=== PATIENT | female | born 1975 | race Caucasian/White ===

== ENCOUNTER 2024-05-16 12:35 | Outpatient (CLI) | payer BC, SELFPAY | END 2024-05-16 12:36 | disposition home or self-care (01) | LOC: FRMREF 12:40 | PROVIDERS: Visit Provider Physician Assistant Medical | DX: B83.9 Helminthiasis, unspecified (principal) | CPT/HCPCS: 80053 ==

== ENCOUNTER 2025-03-11 22:19 | Emergency (ER) | payer BC, SELFPAY ==
[2025-03-11 22:21] VITALS: BP 158/104; PULSE 80; RESP 18; TEMP 36.2; O2SAT 97; BMI 16.9
--- OUTSIDE RECORDS SUMMARY | 2025-03-11 22:22 | XMS_ITS | Clinical Summary ---
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 Active Digestive Enzymes (Enzyme Digest) capsule Take 2 Tablets by mouth. Active medication order composerIndica tions:Hair loss Creatine Magnesium citrate 1.5 tsp as needed at HS Probiotic glycemic natural resource manager: 2 caps with each meal when remembers 0 1 Active mebendazole 100 mg chewable tabletIndicati ons:Parasite infection,Para sites in stool,Taenia solium infection Take 500 mg (5 tablets) by mouth once daily. Repeat in 3 weeks.Please ignore previous prescription 10 Tablet 5 Active estradiol 0.0375 mg/24 hr SEMIWEEKLY patchIndicatio ns:Perimenopau nicole vasomotor symptoms Apply 1 Patch on dry, clean, hairless skin every Monday and . 24 Patch 3 5 Active progesterone micronized (Prometrium) 200 mg capsuleIndicat ions:Perimenop ausal vasomotor symptoms,Preme nstrual spotting Take 1 Capsule (200 mg) by mouth at bedtime. Start on cycle day 16 and continue for 12 nights. This product contains peanut oil. Please verify patient allergies. 90 Capsule 3 5 Active progesterone micronized (Prometrium) 200 mg capsuleIndicat ions:Premenstr ual spotting,Perim enopausal vasomotor symptoms Take 1 Capsule (200 mg) by mouth at bedtime. Start on cycle day 16 and continue for 12 nights. This product contains peanut oil. Please verify patient allergies. 90 Capsule 3 4 025 Discontin ued(Reord er (E-cancel not sent)) estradiol 0.0375 mg/24 hr SEMIWEEKLY patchIndicatio ns:Perimenopau nicole vasomotor symptoms Apply 1 Patch on dry, clean, hairless skin every Monday and . 8 Patch 11 4 025 Discontin ued(*Medi cation adjustmen t) albendazole (ALBENZA) 200 mg tabletIndicati ons:Parasite infection Take 2 Tablets (400 mg) by mouth two times daily. 4 Tablet 4 025 Discontin ued(*Jessica ent states no longer taking) mebendazole 100 mg chewable tabletIndicati ons:Parasite infection,Para sites in stool 500 mg chew ( 5 tablets) by mouth first day then 100 mg (1 tablet) bid by mouth for 3 days. 11 Tablet 5 025 Discontin ued(*Erro r/entry level account representative error) Active Problems Problem Noted Date Diagnosed Date H/O LEEP 10/16/1995 Overview (05/04/2022): 1995 abnormal pap- per medical history, no records 1995 LEEP- per surgical history, no records 02/2022 NIL/HPV negative. Plan: Pap/HPV due 02/2027. Encounters Date Type Department Care Team Description 03/03/2025 8:50 AM CDT Orders Only [facility] [address] [place] [phone] Lab, Appv Lab 03/03/2025 Travel 02/28/2025 8:15 AM CDT Orders Only [facility] [address] [place] [address] Lab, Farm Lab 02/28/2025 Travel 02/27/2025 2:00 PM CDT Telemedicine [facility] [address] [place] [phone] Joyce Rios DO Telehealth; Follow Up 02/20/2025 Telephone [facility] [address] [place] [phone] Karla Castillo NP Prior Authorization (Emverm 100 mg chewable tablet APPROVED 01/22/25-08/20/25) 02/18/2025 8:30 AM CDT Telemedicine [facility] [address] [place] [phone] Karla Castillo NP Telehealth; Follow Up 02/15/[address] [phone] Joyce Rios, Prior Authorization (progesterone micronized (Prometrium) 200 mg capsule Approved 01/16/25-02/15/26) 12/20/[address] [phone] Joyce Rios DO Questions from Last 3 Months Immunizations Immunization Administration Dates Next Due Influenza A (H1N1), Inactiva ahmet (Age >=3 Years) 09/01/2009 Influenza Virus, Unspecified 08/04/2015, 08/18/2014,07/26/2013,2011 Influenza, IIV3 (Age >=3 years) 07/04/2012 Influenza,LAIV4 Live Intrana nicole (Flumist) 08/04/2015,08/18/2014,07/26/2013 Tdap 06/30/2011 Social History Tobacco Use Types Packs/Day Years Used Date Smoking Tobacco: Never Passive Smoke Exposure: Never Smokeless Tobacco: Never Tobacco Cessation:Counseling Given: No Comments:no exposure Alcohol Use Standard Drinks/Week Comments Not Currently 0 (1 standard drink = 0.6 oz pur e alcohol) PHQ-2 Answer Date Recorded PHQ-2 TOTAL SCORE 0 08/21/2023 Financial Resource Strain Answer Date R ecorded Difficulty of Paying Living Expenses Not on file 10/11/2021 Difficulty of Paying Living Expenses Not on file 10/11/2021 Comments No Sex and Gender Information Value Date Recorded Sex Assigned at Not on file Legal Sex Female 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 Gender Identity Not on file Sexual Orientation Not on file 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 Not on file Not on file Obstetrics History Para Term AB IAB SAB Ectopic Multiple Livin g Live Births 2 2 2 0 0 0 0 0 0 2 0 Date Outcome GA Total Labor Labor/2nd/3rd Weight Sex Type Anes PTL Sloane A1 A5 Name Clin Term Term Last Filed Vital Signs Vital Sign Reading Time Taken Comments Blood Pressure 122/80 09/10/2024 9:01 AM REPAIR 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 Pulse 71 09/10/2024 9:01 AM REPAIR 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 Temperature 37.1 C (98.8 F) 09/10/2024 9:01 AM REPAIR 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 Respiratory Rate 16 09/10/2024 9:01 AM REPAIR 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 Oxygen Saturation 99% 06/08/2021 9:00 AM CDT Inhaled Oxygen Concentration - - Weight 80.4 kg (177 lb 4.8 oz) 09/10/2024 9:01 A M REPAIR 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 Height 170.2 cm (5' 7) 08/21/2024 10:02 AM REPAIR 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 Body Mass Index 27.77 08/21/2024 10:02 AM REPAIR 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 Plan of Treatment Upcoming Encounters Date Type Department Care Team (Late st Contact Info) Description 03/17/2025 2:20 PM CDT Office Visit [facility] [address] [facility] [address] [place], [place] [phone] Mely Mendes MBBS [address] [place], [place] [phone] 05/06/2025 10:30 AM CDT Telemedicine [facility] [address] [place] [address] Karla Castillo NP [address] [place] [address] Health Maintenance Due Date Last Done Comments Depression screening for age 12+ 1988 HIV for age 15-65 01/22/1991 Hepatitis C screening for age 18-79 01/22/1994 Hepatitis B series for 19+ (1 of 3 - 19+ 3-dose series) 01/22/1995 Mammogram for age 45-75 01/22/2021 Tetanus booster 06/30/2021 06/30/2011 Fecal testing non-DNA (FIT,FOBT,iFOBT) for age 45-75 02/22/2023 02/22/2022 COVID-19 vaccine series ( - 2023- season) 2024 Influenza Vaccine (Season Ended) 2025 08/04/2015, 08/04/2015, 08/18/2014, Additional history exists BMI (ht and wt on same day) for age 18+ 08/21/2025 08/21/2024, 08/21/2023, 02/14/2022, Additional history exists Lipids for age 45-75 02/14/2027 02/14/2022 Pap test for age 21-65 02/14/2027 , 02/14/2022, 03/22/2019, Additional history exists Tdap Completed 06/30/2011 Pneumococcal series for age 6-49 Aged Out No longer eligible based on patient's age to complete this topic Procedures Procedure Name Priority Date/Time Associated Diagnosis Comments SALIVARY CORTISOL MS Routine 03/02/2025 8:45 PM CDT Weight gain SALIVARY CORTISOL MS Routine 03/02/2025 4:15 PM CDT Weight gain SALIVARY CORTISOL MS Routine 03/02/2025 11:15 AM CDT Weight gain SALIVARY CORTISOL MS Routine 03/02/2025 6:00 AM CDT Weight gain TESTOSTERONE,TOTAL Routine 02/28/2025 8: 05 AM CDT Weight gain DHEA-SULFATE (DHEA-S) Routine 02/28/2025 8:05 AM CDT Weight gain CORTISOL TOTAL Routine 02/28/2025 8:05 AM CDT Weight gain OCCULT BLOOD IFOBT STOOL Routine 02/22/2022 5:14 PM CDT Screen for colon cancer LIPID PANEL W REFLEX MEASURED LDL Routine 02/14/2022 9:17 AM CDT Lipid screening HPV HIGH RISK Routine 02/14/2022 8:57 AM CDT Screening for malignant neoplasm of cervix from Last 3 Months or Most Recently Relevant to Health Maintenance Results * SALIVARY CORTISOL MS (03/02/2025 8:45 PM CDT) Only the most recent of4 resultswithin the time period is included. CORTISOL, LC/MS, SALIVA 0.03 mcg/dL [facility]Ines [facility], Comment: 8-10 AM: 0.04-0.56 mcg/dL noon-2 PM: < OR = 0.21 mcg/dL 4-6 PM: < OR = 0.15 mcg/dL 10 PM-1 AM: < OR = 0.09 mcg/dL This test was developed and its analytical performance characteristics have been determined by [employer]. It has not been cleared or approved by the FDA. This assay has been validated pursuant to the CLIA regulations and is used for clinical purposes. [facility]iva SALIVA SPECIMEN / Unknown 03/02/2025 8:45 PM CDT 03/03/2025 9:00 AM CDT Karla Castillo ENGRAVING PLATE MAKER SEND OUTS Final Re sult [facility] [address] [place] [address], [facility], [address] [place] [address] * CORTISOL TOTAL (02/28/2025 8:05 AM CDT) CORTISOL, TOTAL 14.0 mcg/dL [facility] Comment: Reference Range: For 8 a.m.(7-9 a.m.) Specimen: 4.0-22.0 Reference Range: For 4 p.m.(3-5 p.m.) Specimen: 3.0-17.0 * Please interpret above results accordingly * Blood BLOOD SPECIMEN / Unknown 02/28/2025 8:05 AM CDT 02/28/2025 8:06 AM CDT Karla Hall [employer] ENGRAVING PLATE MAKER CHEMISTRY Final Re sult Performing Organization Address City/[facility]/ZIP Co de Phone Number [facility] [address] [place] [address], [facility] [address] [place] [address] * TESTOSTERONE,TOTAL (02/28/2025 8:05 AM CDT) [facility] TESTOSTERONE, TOTAL, MS 26 2 - 45 ng/dL [facility] Comment: For additional information, please refer to https://education.[employer]/faq/TotalTestosteroneLCMSMS (This link is being provided for informational/educational purposes only.) (Note) This test was developed and its analytical performance characteristics have been determined by [employer] [facility]. It has not been cleared or approved by the FDA. This assay has been validated pursuant to the CLIA regulations and is used for clinical purposes. [facility] [address] [place] [address],[address] [place] [address] Juvenal Rossi MD, PhD Blood BLOOD SPECIMEN / Unknown 02/28/2025 8:05 AM CDT 02/28/2025 8:06 AM CDT Karla Hall Otremba ENGRAVING PLATE MAKER CHEMISTRY Final Re sult Performing Organization Address City/[facility]/ZIP Co de Phone Number [facility] [address] [place] [phone], [facility] [address] [place] [address], [address] [place] [address] * (ABNORMAL) DHEA-SULFATE (DHEA-S) (02/28/2025 8:05 AM CDT) DHEA SULFATE 246(H) 15 - 205 mcg/dL [facility] Blood BLOOD SPECIMEN / Unknown 02/28/2025 8:05 AM CDT 02/28/2025 8:06 AM CDT Karla Castillo ENGRAVING PLATE MAKER SEND OUTS Final Re sult Performing Organization Address [facility] Co de Phone Number [facility] [address] [place] [address], [place] [phone] [facility] [address] [place] [address] * OCCULT BLOOD IFOBT STOOL (02/22/2022 5:14 PM CDT) STOOL BLOOD ,IFOBT Negative Negative 02/25/2022 11:10 AM CDT [facility] Stool STOOL SPECIMEN / Unknown Non-Blood / Unknown 02/22/2022 5:14 PM CDT 02/24/2022 5:14 PM CDT Joyce Rios DO LABORATORY Final Resu lt Performing Organization Address City/[facility]/ZIP Co de Phone Number [facility] [address] [place] [address], [place] [phone] * LIPID PANEL W REFLEX MEASURED LDL (02/14/2022 9:17 AM CDT) CHOLESTEROL,TOTAL 162 100 - 199 mg/dL 02/14/2022 2:14 PM CDT [facility] TRAL LABORATORY TRIGLYCERIDES 38 <150 mg/dL 02/14/2022 2:14 PM CDT [facility] LABOR[facility] HDL CHOLESTEROL 52 >40 mg/dL 2:14 PM CDT [facility] LABORAT[facility] NON-HDL CHOLESTEROL 110 <145 mg/dl 02/14/2022 2:14 PM CDT [facility] TRA LABORATORY CHOL/HDL RATIO 3.12 <4.50 02/14/2022 2:14 PM CDT [facility] TRAL LABORATORY LDL CHOLESTEROL 102 <=130 mg/dL 02/14/2022 2:14 PM CDT [facility] TRAL LABORATORY VLDL CHOLESTEROL 8 <=30 mg/dL 02/14/2022 2:14 PM CDT [facility] LABORAT[facility] PROVIDER ORDERED STATUS RANDOM 02/14/2022 2:14 PM CDT [facility] TRA [facility] Blood BLOOD SPECIMEN / Unknown Venipuncture / Unknown 02/14/2022 9:17 AM CDT 02/14/2022 9:19 AM CDT us Joyce Rios DO CHEMISTRY Final Resu lt Performing Organization Address City/[facility]/ZIP Co de Phone Number [facility] [address] [place] [address], * HPV HIGH RISK (02/14/2022 8:57 AM CDT) TYPE 16 Negative Negative 02/16/2022 4:41 PM CDT [facility] LAB[facility] TYPE 18 Negative Negative 02/16/2022 4:41 PM CDT [facility] OTHER HIGH RISK TYPES Negative Negative 02/16/2022 4:41 PM CDT [facility] Other (Cervical) Non-Blood / Unknown 02/14/2022 8:57 AM CDT 02/15/2022 8:31 AM CDT Narrative [facility] - 02/16/2022 4:41 PM CDT HPV types 16, 18, 31, 33, 35, 39, 45, 51, 52, 56, 58, 59, 66 and 68 DNA were undetectable or below the pre-set threshold. Methodology: [employer] 4800 HPV Test us Joyce Rios DO MICROBIOLOGY Final Resu lt [facility] LAB[facility]ORY [address] [place] [address], [place] from Last 3 Months or Most Recently Relevant to Health Maintenance Insurance [facility] Advance Directives * Full Code (Latest Code Status on File) Date Activated Date Inactivated Comments 06/08/2021 6:11 AM 06/08/2021 11:34 AM Question Answer Comments Code Status Discussion: Not Discussed Care Teams Varsity Baseball Coach Relationship Specialty Start Date End Date Nicholas Dela Cruz PCP - General 01/09/07
--- OUTSIDE RECORDS SUMMARY | 2025-03-11 22:22 | XMS_ITS | Encounter Summary ---
Author Organization [place] Address [address] [place] [address]. [place] [address] Care Team Providers Care Hand Lacer Name Role Phone [facility] Primary Care Provider David Gutierrez MD Unavailable Encounter Details Date Type Department Care Team (Late st Contact Info) Description 08/25/2022 [facility] [place] [address] [place] [address] David Gutierrez MD [address] [place], [place] [phone] Social History Tobacco Use Types Packs/Day Years Used Date Smoking Tobacco: Never Smokeless Tobacco: Never Alcohol Use Standard Drinks/Week Comments No 0 (1 standard drink = 0.6 oz pur e alcohol) Comments No Sex and Gender Information Value Date Recorded Sex Assigned at Not on file Legal Sex Female 4:49 AM STAFF ANTISUBMARINE OFFICER Gender Identity Not on file Sexual Orientation Not on file 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
--- OUTSIDE RECORDS SUMMARY | 2025-03-11 22:22 | XMS_ITS | Clinical Summary ---
Author Organization [facility] Address [address] [place] [address] Care Team Providers Care Sourcing Intern Name Role Phone Unavailable Primary Care Provider Unavailabl e Source Comments You are receiving this document as you are listed as the primary care provider,follow-up provider, or the patient has been referred to you for consultation.This is in compliance with the Medicare andMedicaid EHR Incentive Program,which states Providers who transition their patient to another setting of careor provider of care or refers their patient to another provider of care shouldprovide summary care record for each transition of care or referral. [facility] Allergies Active Allergy Reactions Criticality Noted Date Comments Oxycodone-Acetaminophen Anaphylaxis,Hives High 12/21 Medications No known medications Encounters Date Type Department Care Team Description 02/25/2025 Telephone Infectious Disease at [address] [address] Unassigned, Provider Appt. Needed from Last 3 Months Social History Tobacco Use Types Packs/Day Years Used Date Smoking Tobacco: Never Assessed Comments Unknown Sex and Gender Information Value Date Recorded Sex Assigned at Not on file Legal Sex Female 7:12 AM PEST LOCATOR Gender Identity Not on file Sexual Orientation Not on file Last Filed Vital Signs Vital Sign Reading Time Taken Comments Blood Pressure - - Pulse - - Temperature 35.6 C (96.1 F) 12/21/2020 8:08 AM PEST LOCATOR Respiratory Rate - - Oxygen Saturation - - Inhaled Oxygen Concentration - - Weight 74.8 kg (165 lb) 12/21/2020 8:08 AM PEST LOCATOR Height 170.2 cm (5' 7) 12/21/2020 8:08 AM PEST LOCATOR Body Mass Index 25.84 12/21/2020 8:08 AM PEST LOCATOR Plan of Treatment Upcoming Encounters Date Type Department Care Team (Late st Contact Info) Description 04/03/2025 1:00 PM CDT Appointment Infectious Disease at [facility] [address] [facility] [place] [address] Suellen Barrera, [address] [place], [place] [phone] Health Maintenance Due Date Last Done Comments Cervical Cancer Screening Due 1976 Colon Cancer Screening Plan Due 1976 Hep C Screening (Preventive Services) 1976 Mammogram 1976 HIV Screening (Preventive Services) 1992 Adult Preventive Visit 01/22/1994 HepB Vaccine (1) 01/22/1995 Cholesterol 01/22/2021 DTaP/Tdap/Td Vaccine (2 - Tdap) 06/30/2021 06/30/2011 COVID-19 Vaccine (1 - season) 2024 Influenza Vaccine (Season Ended) 2025 08/04/2015, 08/18/2014, 07/26/2013, Additional history exists Zoster/Shingles Vaccine (1 of 2) 01/22/2026 HepA Vaccine Aged Out No longer eligi ble based on patient's age to complete this topic Hib Vaccine Aged Out No longer eligi ble based on patient's age to complete this topic IPV (Polio) Vaccine Aged Out No longe r eligible based on patient's age to complete this topic MCV4 Vaccine Aged Out No longer eligi ble based on patient's age to complete this topic Meningococcal B Vaccine Aged Out No l onger eligible based on patient's age to complete this topic Pneumococcal Vaccine Aged Out No long er eligible based on patient's age to complete this topic Insurance BS [employer]AL Member Subscriber Plan / Payer (Ef fective 2008-Present) Name:ALYCIA ANNE Relation to Subscriber:Spouse Name:HUEY ANNE Date of :1975 Payer ID:[id number] (NAIC) Group ID:[id number] Type:Commercial Address: [address] [place] [phone] [facility] FEDERAL
--- OUTSIDE RECORDS SUMMARY | 2025-03-11 22:22 | XMS_ITS | Clinical Summary ---
Author Organization [facility] Address [address] [place] [address]. [place] [address] Care Team Providers Care Sawyer Helper Name Role Phone Clinic, [facility] Primary Care Provider Allergies Active Allergy Reactions Criticality Noted Date Comments Oxycodone-Acetaminophen Rash Low 12/29/2017 Medications diphenhydrAMINE (BENADRYL) 25 MG tablet Take 1 tablet (25 mg) by mouth every 6 hours as needed for itching 30 tablet 12/29/2017 Active calcium carbonate 500 mg, elemental, (OSCAL 500) 1250 (500 Ca) MG TABS tablet Take 2 tablets by mouth Active vitamin B-12 (CYANOCOBALAMIN ) 1000 MCG tablet Take 1 tablet by mouth daily Active Digestive Enzymes (ENZYME DIGEST) CAPS Take 2 tablets by mouth Active Ferrous Sulfate (IRON) 90 (18 Fe) MG TABS Active progesterone (PROMETRIUM) 200 MG capsule INSERT 1 CAP (200 MG) INTO THE VAGINA AT BEDTIME. START ON CYCLE DAY 18 AND CONTINUE X10 NIGHTS. 01/19/2022 Active zinc gluconate 50 MG tablet Active magnesium 500 MG TABS Active Probiotic Product (PROBIOTIC DAILY PO) Active Family History Medical History Relation Comments Hypertension Father Diabetes Mother Breast Cancer Paternal Grandmother C.A.D. 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 Not on file Not on file Not o n file Last Filed Vital Signs Vital Sign Reading Time Taken Comments Blood Pressure 132/80 09/02/2022 10:03 AM SHIPBOARD INTELLIGENCE ANALYST Pulse 83 09/02/2022 10:03 AM SHIPBOARD INTELLIGENCE ANALYST Temperature 37.4 C (99.3 F) 11/28/2018 10:40 PM SHIPBOARD INTELLIGENCE ANALYST Respiratory Rate 16 12/29/2017 10:00 AM CDT Oxygen Saturation 97% 09/02/2022 10:03 AM SHIPBOARD INTELLIGENCE ANALYST Inhaled Oxygen Concentration - - Weight 79.4 kg (175 lb) 12/29/2017 10:00 AM CDT Height 170.2 cm (5' 7) 08/07/2012 3:30 AM CDT Body Mass Index 27.41 08/07/2012 3:30 AM CDT Plan of Treatment Health Maintenance Due Date Last Done Comments ADVANCE CARE PLANNING 1976 ANNUAL REVIEW OF HM ORDERS 1976 CT COLONOGRAPHY 1976 FLEX SIG 1976 MAMMO SCREENING 1976 sDNA (Cologuard) 1976 HIV SCREENING 01/22/1991 HEPATITIS C SCREENING 01/22/1994 HEPATITIS B VACCINE (1 of 3 - 19+ 3-dose series) 01/22/1995 LIPID 2016 DTAP/TDAP/TD VACCINE (2 - Td or Tdap) 06/30/2021 06/30/2011 DIABETES SCREENING 11/28/2021 11/28/2018 YEARLY PREVENTIVE VISIT 02/14/2023 02/14/2022 FIT 02/22/2023 02/22/2022 COVID-19 VACCINE ( season) 2024 PHQ-2 (once per calendar year) 2024 PAP 02/14/2025 02/14/2022 INFLUENZA VACCINE (Season Ended) 2025 08/04/2015, 08/04/2015, 08/04/2015, Additional history exists ZOSTER VACCINE (1 of 2) 01/22/2026 COLONOSCOPY 02/29/2032 02/28/2022, 02/13, 05/12/2009 COLORECTAL CANCER SCREENING 02/29/2032 HPV VACCINE Aged Out No longer eligi ble based on patient's age to complete this topic MENINGITIS VACCINE Aged Out No longer eligible based on patient's age to complete this topic PNEUMOCOCCAL VACCINE: PEDIATRICS (0 to 5 YEARS) AND AT-RISK PATIENTS (6 to 49 YEARS) Aged Out No longer eligible based on patient's age to complete this topic Medical Devices Implanted Type Area Nitric Acid Plant Operator Device Identifier Shelf Expiration Date Model / Serial / Lot Mesh Ventralex Hernia 2.5 [place] [facility] W/Strap [id number] Implanted:Qty : 1 on 07/31/2012 by Navneet Cason MD at [facility] N/A: Umb[employer]ical [employer]-DAVOL 06/14/2014 [id number] / / [id number] Explanted Type Area Nitric Acid Plant Operator Device Identifier Shelf Expiration Date Model / Serial / Lot Catheter-2021 Implanted:09/02 by David Gutierrez MD (Quantity not on file) Explanted:09/02 by David Gutierrez MD (Quantity not on file) Catheter [employer] TechnologiesTRONIC [id number] 03/15/2024 / / [id number] Procedures Procedure Name Priority Date/Time Associated Diagnosis Comments BASIC METABOLIC PANEL STAT 11/28/2018 10:41 PM SHIPBOARD INTELLIGENCE ANALYST ZZHC COLONOSCOPY W BIOPSY Routine 05/12/2009 SCANNING RESULTS from Last 3 Months or Most Recently Relevant to Health Maintenance Results * (ABNORMAL) Basic metabolic panel (11/28/2018 10:41 PM SHIPBOARD INTELLIGENCE ANALYST) Sodium 135 133 - 144 mmol/L 11/28/2018 11:04 PM [facility] Potassium 3.2(L) 3.4 - 5.3 mmol/L 11/28/2018 11:04 PM [facility] Chloride 104 94 - 109 mmol/L 11/28/2018 11:04 PM [facility] Carbon Dioxide 22 20 - 32 mmol/L 11/28/2018 11:11 PM [facility] Anion Gap 9 3 - 14 mmol/L 11/28/2018 11:11 PM SHIPBOARD INTELLIGENCE ANALYST [facility] Glucose 116(H) 70 - 99 mg/dL 11/28/2018 11:11 PM [facility] Urea Nitrogen 5(L) 7 - 30 mg/dL 11/28/2018 11:11 PM [facility] Creatinine 0.60 0.52 - 1.04 mg/dL 11/28/2018 11:11 PM [facility] GFR Estimate >90 >60 mL/min/{1. 73_m2} 11/28/2018 11:11 PM [facility] Comment: Non GFR Calc Starting 10/02/2018, serum creatinine based estimated GFR (eGFR) will be calculated using the Chronic Kidney Disease Epidemiology Collaboration (CKD-EPI) equation. GFR Estimate If Black >90 >60 mL/min/{1. 73_m2} 11/28/2018 11:11 PM [facility] Comment: GFR Calc Starting 10/02/2018, serum creatinine based estimated GFR (eGFR) will be calculated using the Chronic Kidney Disease Epidemiology Collaboration (CKD-EPI) equation. Calcium 8.0(L) 8.5 - 10.1 mg/dL 11/28/2018 11:11 PM [facility] Blood specimen (specimen) 11/28/2018 10:41 PM SHIPBOARD INTELLIGENCE ANALYST 11/28/2018 10:53 PM SHIPBOARD INTELLIGENCE ANALYST Aminah Fitzgerald PA-C LAB - BLOOD ORDERABLES Sasha carrillo Result [facility] Naomy E Isabelle [place] [id number], [facility] [phone] * COLONOSCOPY,BIOPSY (05/12/2009) us Provider Abstract PROCEDURES Final Result from Last 3 Months or Most Recently Relevant to Health Maintenance Insurance [employer] FEDERAL EMPLOYEE PROGRAM [facility] FEDERAL EMPLOYEE PROGRAM Care Teams Sawyer Helper Relationship Specialty Start Date End Date [facility], [address] [address] PCP - General 11/28/18
--- OUTSIDE RECORDS SUMMARY | 2025-03-11 22:22 | XMS_ITS | Encounter Summary ---
Author Organization [facility] Address [address] [place] [address] Care Team Providers Care Merchandise Worker Name Role Phone Unavailable Primary Care Provider Unavailabl e Reason for Visit * Reason Comments Appt. Needed Encounter Details Date Type Department Care Team (Late st Contact Info) Description 02/25/2025 Telephone Infectious Disease at [address] [address] Unassigned, Provider [address] [place] [address] Appt. 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 Thank-you. Esequiel Ga RN 02/26/2025, 1:46 PM Infectious Disease * Kacy Solis MD - 02/26/2025 12:14 PM CDT Would be new patient slot. Thanks, Kacy Solis MD * Esequiel Ga RN - 02/26/2025 9:54 AM CDT Noted Travel provider message. Dr. Solis: Please advise if this should be scheduled as a new pt slot or ID f/u slot. Thank-you. Esequiel Ga RN 02/26/2025, 9:54 AM Infectious Disease * Nilsa Smith MD - 02/25/2025 4:53 PM CDT There's no documentation about travel. One office visit note from 09/10/24 states that, Possible intestinal parasite/worm. Most common in [place] is pinworm. Without travel history, does not need to be seen in travel department. Nilsa Smith MD 02/25/2025, 4:55 PM * Esequiel Ga RN - 02/25/2025 2:09 PM CDT Routing to Travel manager star Provider: Please review Dr. Solis's recommendations and advise. Thank-you. Esequiel Ga RN 02/25/2025, 2:10 PM Infectious Disease * [place] - 02/25/2025 1:50 PM CDT Please advise * Kacy Solis MD - 02/25/2025 1:22 PM CDT Chart reviewed Appears she saw ID through [facility] Aug 2024, treated empirically for pinworms with albendazole, unclear if took full prescription based on chart review. Seeing functional medicine provider through [facility]. Reports continues to pass worm and provider concern possible ascariasis. She was started on mebendazole 02/18. Her prior O&Ps were negative in 2023. Would check with travel/trop medicine to see if would be appropriate for them to see if she needs to be seen sooner. If not ok to schedule with ID. Thanks, Kacy Solis MD * [place] - 02/25/2025 12:04 PM CDT Images from the original note were not included. Outside referral from [facility]. Records are in Care Everywhere and they are also being faxed to us. Diagnosis: Unspecified parasitic disease Urgency: n/a Next available new patient appt: 03/21 Next available urgent access: 03/06 Screen shot of availability Patient Referred to Infectious Disease clinic with above diagnosis. Please review referral and confirm whether patient should be seen in clinic or if more appropriate to be seen elsewhere. If patient will benefit from a different referral, please indicate an appropriate service for patient to be referred to and provide reason, if appropriate. If patient will benefit from an appointment with Infectious Disease, please indicate urgency and ifan e-consult would be appropriate. documented in this encounter Plan of Treatment Upcoming Encounters Date Type Department Care Team (Late st Contact Info) Description 04/03/2025 1:00 PM CDT Appointment Infectious Disease at [address] [place] [address] Suellen Barrera, [address] [place] [address] documented as of this encounter Visit Diagnoses Not on filedocumented in this encounter
--- NOTE | 2025-03-11 22:45 | CRLHL7_ITS ---
For Patients: As a result of the Century Cures Act, medical imaging exams and procedure reports are released immediately into your electronic medical record. You may view this report before your referring provider. If you have questions, please contact your health care provider. INDICATION: Left lower extremity pain. TECHNIQUE: Ultrasound venous duplex lower left extremity. Compression venous exam was performed using rodriguez-scale, color Doppler, and spectral Doppler analysis. COMPARISON: None. FINDINGS: Deep veins: Sonographic imaging demonstrates the left common femoral, deep femoral, superficial femoral, popliteal, posterior tibial, peroneal, and the contralateral right common femoral veins to be fully compressible with normal color Doppler blood flow. Superficial veins: The greater saphenous vein is not well visualized due to prior ablation from the level of the proximal thigh to the knee. Below the level of the knee, visualized greater saphenous vein is patent. IMPRESSION: No left lower extremity DVT appreciated. Dictated by Gerardo Silveira MD @ 03/12/2025 1:19:55 AM (Electronically Signed)
--- NOTE | 2025-03-11 22:46 | ED.GENADULT ---
HPI - General Adult General Chief complaint: Extremity Pain/Injury, Lower Stated complaint: Pain left thigh and tingling left foot Time Seen by Provider: 03/11/25 22:28 History of Present Illness HPI narrative: This 50-year-old female comes in reporting a pain that started behind her left knee and then seemed to progress proximally into her left inner thigh. She also feels some tingling down into her foot. She does not report any back pain. She does not have any weakness. There was not any injury event and she has no prior history of deep venous thrombosis. She does have history of some treatment of varicose veins in her legs but this was some years ago. Related Data Home Medications ?Medication ?Instructions ?Recorded ?Confirmed estradiol 0.025 mg/24 hr weekly 1 patch transdermal 02/15/24 05/16/24 transdermal patch progesterone micronized 200 mg 200 mg PO QPM 02/15/24 05/16/24 capsule Previous Rx's ?Medication ?Instructions ?Recorded mebendazole 100 mg chewable tablet 100 mg PO ONCE #2 tabs 05/16/24 Allergies Allergy/AdvReac Type Severity Reaction Status Date / Time acetaminophen (From Percocet) Allergy Intermediate Verified 05/16/24 12:28 oxycodone (From Percocet) Allergy Intermediate Verified 05/16/24 12:28 Review of Systems Status of ROS: Reports: 10 or more systems reviewed and unremarkable except as noted in History and below Narrative: Constitutional: No fevers, no weight gain or loss. Eyes: No discharge. No vision changes. HENT: No congestion, no sore throat, no ear pain. Cardiovascular: No chest pain, no palpitations. Respiratory: No shortness of breath, no wheezes, no cough. Gastrointestinal: No abdominal pain, no vomiting, no diarrhea. Genitourinary: No dysuria, no hematuria. Musculoskeletal: Normal range of motion. Skin: No rashes, no pruritis. Neurological: No dizziness, weakness, sensory change, speech change. Endo/Heme/Allergies: No bruising or bleeding. No polydipsia. Pysch: no suicidality, no anxiety, no insomnia. All other systems reviewed and are negative. PFSH PFSH Social History Smoking Status: Never smoker Do you use any of these nicotine containing products: None How often do you have a drink containing alcohol: never AUDIT-C Alcohol total score: 0 Non-prescribed substance use: denies use Exam Narrative: Exam Narrative: Constitutional: Well-developed, well-nourished, no acute distress. HEENT: Normocephalic, atraumatic. Neck: Normal range of motion. Nontender. Supple. Heart: Intact distal pulses. Lungs: No chest discomfort. No wheezes, rhonchi, or rales. Abdomen: Nontender. Back: Normal range of motion. Extremities: Normal range of motion. No injury. No swelling of the left leg. Normal skin color. Skin: Intact. No rash. Warm. No erythema or pallor. Neurologic: No altered sensation. No weakness. Alert and oriented. No back pain. Straight leg raise is negative bilaterally. Psychiatric: No suicidality. No anxiety or depression. No insomnia. Nursing notes and vitals signs are reviewed. Const: Vital Signs, click to edit/add: Vital Signs - 24 hr 03/11/25 22:21 03/11/25 23:03 03/11/25 23:03 Temperature 97.1 F L Pulse Rate [Left D orsalis Pedis] 86 Pulse Rate [Left P ulse Oximeter] 80 86 Respiratory Rate 18 16 Blood Pressure [Ri ght Upper Arm] 158/104 H 162/92 H Pulse Oximetry 97 98 Oxygen Delivery Me thod Room Air Room Air Course Vital Signs Vital signs: Initial Vital Signs Temperature 97.1 F L 03/11/25 22:21 Temperature Source Temporal Artery Scan 03/11/25 22:21 Pulse Rate 80 03/11/25 22:21 Pulse Rhythm Regular 03/11/25 22:21 Respiratory Rate 18 03/11/25 22:21 Blood Pressure 158/104 H 03/11/25 22:21 Blood Pressure Mean 122 H 03/11/25 22:21 Blood Pressure Position Sitting 03/11/25 22:21 Pulse Oximetry 97 03/11/25 22:21 Oxygen Delivery Method Room Air 03/11/25 22:21 Vital Signs Temperature 97.1 F L 03/11/25 22:21 Pulse Rate 80 03/11/25 22:21 Respiratory Rate 18 03/11/25 22:21 Blood Pressure 158/104 H 03/11/25 22:21 Pulse Oximetry 97 03/11/25 22:21 Oxygen Delivery Method Room Air 03/11/25 22:21 Temperature 97.1 F L 03/11/25 22:21 Pulse Rate 86 03/11/25 23:03 Respiratory Rate 16 03/11/25 23:03 Blood Pressure 162/92 H 03/11/25 23:03 Pulse Oximetry 98 03/11/25 23:03 Oxygen Delivery Method Room Air 03/11/25 23:03 Medical Decision Making MDM Narrative Medical decision making narrative: This 50-year-old female comes in with concern about discomfort in her left leg as described above. She is concerned that there may be a blood clot. She reported some symptoms starting just a few hours ago. She does not have any injury event and no history of blood clots in the past. She does have history of varicose veins and states that she notes that there is a bulging vein when she stands up in the inner aspect of her left upper leg. This is where she is feeling some discomfort currently. She also reports some tingling down her left foot. She does not have any back pain. The patient is not displaying symptoms that are suspicious for deep venous thrombosis but nevertheless an ultrasound was ordered and obtained showing normal anatomy. There is no sign of deep venous thrombosis on ultrasound exam. This was reassuring to the patient. I advised using [id number] medicines as needed and directed. I also reported certain symptoms and findings that would indicate a need for return re-evaluation. Discharge Plan Discharge Clinical Impression: Left leg pain Patient Disposition: Home, Self-Care Condition: Stable Additional Instructions: Use [id number] medicines as needed and directed. Increase activity as tolerated. Follow up with MD return if worsening. Prescriptions: No Action mebendazole 100 mg tablet,chewable 100 mg PO ONCE Qty: 2 0RF Rx Instructions: 1 po now and then repeat in 2 weeks. estradiol 0.025 mg/24 hr patch weekly 1 patch transdermal progesterone micronized 200 mg capsule 200 mg PO QPM Follow Up/Referrals: Provider,Not a Local [Primary Care Provider, Family Practice] Stand Alone Forms: [employer] Info Instructions
[2025-03-11 23:03] VITALS: BP 162/92; PULSE 86; RESP 16; O2SAT 98
== END 2025-03-12 00:10 | disposition home or self-care (01) ==
PROVIDERS: Emergency Provider Emergency Medicine Emergency Medical Services
DX: M79.605 Pain in left leg (principal); R20.2 Paresthesia of skin
CPT/HCPCS: 93971; 99284